=== PATIENT | female | born 1975 | race Caucasian/White ===

== ENCOUNTER 2021-02-19 14:24 | Inpatient (IN) | payer MEDICAID ==
[~2021-02-19] VITALS: Ht 165.1 cm; Wt 54.4 kg
[2021-02-19 18:25] LABS: MEAN CORPUSCULAR HEMOGLOBIN 27.1 pg (28.0-32.0); MEAN CORPUSCULAR VOLUME 80.1 fL (81.0-99.0); MEAN PLATELET VOLUME 7.4 fl (7.4-10.4); PLATELET 345 x1000/uL (130-400); RED BLOOD CELL COUNT 2.27 mill/uL (4.2-5.4); RED CELL DISTRIBUTION WIDTH 19.1 % (11.6-14.6)
[2021-02-19 18:29] LABS: CHLORIDE 106 mEq/L (98-107)
[2021-02-19 18:37] LABS: INR 1.2; PROTHROMBIN TIME 12.4 sec (9.6-11.0)
[2021-02-19 18:40] LABS: CLARITY URINE CLOUDY (CLEAR); COLOR URINE DARK YELLOW (YELLOW); KETONES URINE TRACE (NEGATIVE); LEUKOCYTE ESTERASE URINE 1+ (NEGATIVE); NITRITE URINE NEGATIVE (NEGATIVE); OCCULT BLOOD URINE 2+ (NEGATIVE); PROTEIN URINE 2+ (NEGATIVE)
[2021-02-19 18:43] LABS: HEMATOCRIT. 18.2 % (36.0-48.0); HEMOGLOBIN. 6.2 g/dL (12.0-16.0)
[2021-02-19] MEDS ORDERED: CEFTRIAXONE 1 G PREMIX 50 ML IV ONE (19:30)
[2021-02-19] MEDS ORDERED: SODIUM CHLORIDE 0.9% 1,000 ML IV ONE (19:30)
[2021-02-19 20:30] LABS: PLATELET ESTIMATE NORMAL
[2021-02-19] MEDS ORDERED: ACETAMINOPHEN 500MG TABLET PO ONE (20:30)
[2021-02-19 22:25] VITALS: BP 108/68
[2021-02-20] VITALS (11 sets, daily range): BP systolic 97–121; BP diastolic 66–73
[2021-02-20] MEDS ORDERED: MORPHINE SULFATE 2 MG/ML CPJ (NOT FOR IM USE) IV PRN (00:30)
[2021-02-20] MEDS ORDERED: ONDANSETRON HCL 4MG/2ML INJ IV PRN (00:30)
[2021-02-20] MEDS: MORPHINE SULFATE 2 MG/ML CPJ (NOT FOR IM USE) IV PRN ×3 (00:59→12:01)
[2021-02-20 07:47] LABS: HEMOGLOBIN. 8.2 g/dL (12.0-16.0); MEAN CORPUSCULAR HEMOGLOBIN 27.6 pg (28.0-32.0); MEAN PLATELET VOLUME 7.2 fl (7.4-10.4); PLATELET 260 x1000/uL (130-400); RED BLOOD CELL COUNT 2.96 mill/uL (4.2-5.4); RED CELL DISTRIBUTION WIDTH 16.6 % (11.6-14.6)
[2021-02-20] MEDS ORDERED: HYDROCODONE/ACETAMINOPHEN 5/325MG TABLET PO PRN (12:15)
[2021-02-20] MEDS ORDERED: NALOXONE HCL 0.4MG/ML VIAL IV PRN (12:15)
[2021-02-20 12:32] LABS: PLATELET ESTIMATE NORMAL
[2021-02-20] MEDS ORDERED: CEFTRIAXONE 1 G PREMIX 50 ML IV SCH (14:15)
[2021-02-20] MEDS ORDERED: CEFTRIAXONE 1,000 MG in DEXTROSE 5% WATER 50 ML IV SCH (18:00)
== END 2021-02-20 20:14 | disposition home or self-care (01) | DRG 663 ==
LOC: ER 14:24 → EDBEDREQTM 20:25 → EDBEDREQ 20:25 → 8WST 21:44 → ENRESERV 21:45 → EDBEDREQ 21:46
PROVIDERS: ADMIT Internal Medicine; ATTEND Internal Medicine
PROC: 30233N1 Transfusion of Nonautologous Red Blood Cells into Peripheral Vein, Percutaneous Approach (ICD-10-PCS; principal; 2021-02-19)
DX: D64.9 Anemia, unspecified (principal); E43 Unspecified severe protein-calorie malnutrition; C18.9 Malignant neoplasm of colon, unspecified; E87.1 Hypo-osmolality and hyponatremia; N39.0 Urinary tract infection, site not specified; E66.9 Obesity, unspecified; S31.502A Unspecified open wound of unspecified external genital organs, female, initial encounter; Y84.2 Radiological procedure and radiotherapy as the cause of abnormal reaction of the patient, or of later complication, without mention of misadventure at the time of the procedure; F17.200 Nicotine dependence, unspecified, uncomplicated; Z93.3 Colostomy status; Z68.20 Body mass index [BMI] 20.0-20.9, adult; Z98.891 History of uterine scar from previous surgery; Y92.89 Other specified places as the place of occurrence of the external cause; Y93.89 Activity, other specified; Y99.8 Other external cause status
CPT/HCPCS: 36415; 80053; 81003; 82270; 85025; 86850; 86900; 86920; 99291; J0696; J2270; J7040; J7060; P9016